=== PATIENT | female | born 1985 | race Caucasian/White ===

== ENCOUNTER 2024-05-23 13:11 | Emergency (ER) | payer OTHER ==
[2024-05-23 13:45] LABS: Specific Gravity < 1.005 (1.005-1.030); Sqamous Epithelial <5 /HPF (None Seen); Urine Bacteria None Seen /HPF (<20); Urine Bilirubin NEGATIVE (Negative); Urine Blood Negative (Negative); Urine Clarity Turbid (Clear); Urine Color Colorless (Yellow); Urine Culture Reflex Order NOT NEEDED; Urine Glucose NEGATIVE (Negative); Urine Ketones NEGATIVE (Negative); Urine Microscopic Reflex YN ORDER UMIC; Urine Nitrite NEGATIVE (Negative); Urine Protein NEGATIVE (Negative); Urine RBC <5 /HPF (None Seen); Urine Urobilinogen Normal (Normal); Urine WBC <5 /HPF (<5)
--- NOTE | 2024-05-23 14:46 | ER ---
Nurse's Notes [facility] Name: Mandy Beckford Age: 39 yrs Sex: Female : 1985 Arrival Date: 05/23/2024 Time: 13:11 Bed 16 Private MD: Diagnosis: Other ovarian cysts;Leiomyoma of uterus, unspecified Presentation: 05/23 13:22 Chief complaint: Patient states: left lower pelvic pain x1yr, worse last night. reports [facility] history of fibroids and cysts. Coronavirus screen: At this time, the client does not indicate any symptoms associated with coronavirus-19. Ebola Screen: No symptoms or risks identified at this time. Initial Sepsis Screen: Does the patient meet any 2 criteria? No. Patient's initial sepsis screen is negative. Does the patient have a suspected source of infection? No. Patient's initial sepsis screen is negative. Risk Assessment: Do you want to hurt yourself or someone else? Patient reports no desire to harm self or others. Onset of symptoms was May 23, 2024. 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 - Infectious Disease History:: Denies. - Social history:: Smoking status: Patient reports the use of cigarette tobacco products, smokes one-half pack cigarettes per day. Screenin:24 [facility] ED Fall Risk Assessment (Adult) History of falling in the last 3 months, me1 including since admission No falls in past 3 months (0 pts) Confusion or Disorientation No (0 pts) Intoxicated or Sedated No (0 pts) Impaired Gait No (0 pts) Mobility Assist Device Used No (0 pt) Altered Elimination No (0 pt) Score/Fall Risk Level 0 - 2 = Low Risk Maintained a safe environment, Provided non-skid footwear, Hourly rounding (assess needs \T\ fall precautionary measures) done. Abuse screen: Denies threats or abuse. Nutritional screening: No deficits noted. Tuberculosis screening: No symptoms or risk factors identified. Assessment: 13:24 General: Appears in no apparent distress. well developed, well nourished, Behavior is me1 calm, cooperative, appropriate for age, Reports Left lower pelvic pain x 1 year that got worse last night. Pain: Complains of pain in pelvis Pain does not radiate. Pain Pain began gradually, years ago. Is chronic. Neuro: Level of Consciousness is awake, alert, obeys commands, Oriented to person, place, time, situation, Appropriate for age. Cardiovascular: Patient's skin is warm and dry. Respiratory: Airway is patent Respiratory effort is even, unlabored, Respiratory pattern is regular, symmetrical. GI: No signs and/or symptoms were reported involving the gastrointestinal system. : Reports pain in left left lower pelvis. EENT: No signs and/or symptoms were reported regarding the EENT system. Derm: Skin is intact, is healthy with good turgor, Skin is pink, warm \T\ dry. Musculoskeletal: No signs and/or symptoms reported regarding the musculoskeletal system. 15:01 Reassessment: No changes from previously documented assessment. Patient and/or family mb9 updated on plan of care and expected duration. Pain level reassessed. Patient is alert, oriented x 3, equal unlabored respirations, skin warm/dry/pink. Vital Signs: 13:22 BP 139 / 92; Pulse 98; Resp 17 S; Temp 97.9(O); Pulse Ox 95% on R/A; Weight 86.18 kg; kc6 Height 5 ft. 8 in. (R); Pain 8/10; 15:01 BP 132 / 76; Pulse 78; Resp 18; Pulse Ox 100% on R/A; mb9 13:22 Body Mass Index 28.89 (86.18 kg, 172.72 cm) [facility] 13:22 Pain Scale: Adult [facility] ED Course: 13:13 Patient arrived in ED. mg5 13:14 Francine Salinas FNP-C is [facility]. kb 13:14 Yamil Bradford DO is Attending Physician. kb 13:24 Triage completed. 6 13:24 Cleo Molina, LIBRADO is Primary Nurse. me1 13:24 Arm band placed on. 6 13:24 Patient has correct armband on for positive identification. Bed in low position. Call me1 light in reach. Side rails up X2. Provided Education on: POC. Verbalized understanding. . Client placed on continuous cardiac and pulse oximetry monitoring. NIBP monitoring applied. Pulse ox on. NIBP on. 13:24 No provider procedures requiring assistance completed. me1 13:31 Test, Urine Sent. me1 13:31 Urinalysis w/ reflexes Sent. me1 13:31 Urine collected: clean catch specimen, clear. me1 13:48 Trice Beth, RN is Primary Nurse. mb9 14:29 Transvaginal Study (Probe) In Process Unspecified. EDMS 15:01 Patient did not have IV access during this emergency room visit. mb9 Administered Medications: 15:01 Not Given (Patient Refused): [id number] mg IM once mb9 Medication: 13:24 VIS not applicable for this client. me1 Outcome: 14:46 Discharge ordered by . kb 15:01 Discharged to home ambulatory, mb9 15:01 Condition: stable 15:01 Discharge instructions given to patient, Instructed on discharge instructions, follow up and referral plans. Demonstrated understanding of instructions, follow-up care, medications, Prescriptions given X 1, 15:02 Patient left the ED. mb9 Signatures: Dispatcher [employer] EDSC Francine Salinas, FACE BOSS-C FACE BOSS-Karly Neal RN RN Trice Champion, RN RN [email or web address] Cleo Molina RN RN me1 Mai Lima mg5
--- NOTE | 2024-05-23 14:47 | EDPHYS ---
Physician Documentation [facility] Name: Mandy Beckford Age: 39 yrs Sex: Female : 1985 Arrival Date: 05/23/2024 Time: 13:11 Bed 16 Private MD: ED Physician Yamil Bradford HPI: 05/23 14:08 This 39 yrs old Female presents to ER via Ambulatory with complaints of Pain. kb 14:08 Pt is a 39 year old female who presents for left pelvic pain that started one year ago. kb Reports pain is worse with menstrual cycles and having BM. States she was seen upon onset of symptoms and told she has fibroids and a cyst. Has not followed up with MANAGEMENT PROFESSIONAL due to lack of insurance. States the pain got worse yesterday . 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 - Infectious Disease History:: Denies. - Social history:: Smoking status: Patient reports the use of cigarette tobacco products, smokes one-half pack cigarettes per day. ROS: 14:08 Constitutional: As per HPI kb Exam: 14:08 Constitutional: This is a well developed, well nourished patient who is awake, alert, kb and in no acute distress. Head/Face: Normocephalic, atraumatic. ENT: Moist Mucous membranes Cardiovascular: Regular rate Respiratory: Respirations even and unlabored. No increased work of breathing. Talking in full sentences Abdomen/GI: Soft, non-tender. No distention Skin: Warm, dry with normal turgor. Normal color. MS/ Extremity: Pulses equal, no cyanosis. Neurovascular intact. Full, normal range of motion. Neuro: Awake and alert, GCS 15, oriented to person, place, time, and situation. Moves all extremities. Normal gait. Vital Signs: 13:22 BP 139 / 92; Pulse 98; Resp 17 S; Temp 97.9(O); Pulse Ox 95% on R/A; Weight 86.18 kg; kc6 Height 5 ft. 8 in. (R); Pain 8/10; 15:01 BP 132 / 76; Pulse 78; Resp 18; Pulse Ox 100% on R/A; mb9 13:22 Body Mass Index 28.89 (86.18 kg, 172.72 cm) kc6 13:22 Pain Scale: Adult kc6 MDM: 13:14 Patient medically screened. kb 14:08 Data reviewed: vital signs, nurses notes. kb 14:11 Differential diagnosis: ovarian cyst, fibroids, torsion. Historians other than the kb Patient: Parent: mother. 14:45 Counseling: I had a detailed discussion with the patient and/or guardian regarding the kb historical points, exam findings, and any diagnostic results supporting the discharge/admit diagnosis, lab results, radiology results, the need for outpatient follow up, an OB/Gyne specialist, to return to the emergency department if symptoms worsen or persist or if there are any questions or concerns that arise at home. 05/23 13:20 Order name: Test, Urine; Complete Time: 13:47 kb 05/23 13:20 Order name: Urinalysis w/ reflexes; Complete Time: 13:47 kb 05/23 13:20 Order name: US Transvaginal Study (Probe) kb Administered Medications: 15:01 Not Given (Patient Refused): mg IM once mb9 Disposition: 18:47 I was immediately available on-site in the Emergency Department for consultation in the nh3 care of the patient. Disposition Summary: 05/23/24 14:46 Discharge Ordered Notes: Location: Home kb Condition: Stable kb Diagnosis - Other ovarian cysts kb - Leiomyoma of uterus, unspecified kb Followup: kb - With: Emergency Department - When: As needed - Reason: Worsening of condition Followup: kb - With: Private Physician - When: 2 - 3 days - Reason: Recheck today's complaints, Continuance of care, Re-evaluation by your physician Discharge Instructions: - Discharge Summary Sheet kb - Uterine Fibroids kb - Ovarian Cyst, [id number] kb Forms: - Work release form kb - Medication Reconciliation Form kb - Antibiotic Education kb - Prescription Opioid Use kb - Patient Portal Instructions kb - Leadership Thank You Letter kb Prescriptions: - Diclofenac Sodium 75 mg Oral tablet, delayed release (enteric coated) - take 1 tablet ORAL route 2 times per day As needed; 30 tablet; Refills: 0, kb Product Selection Permitted Signatures: Dispatcher [employer] Francine Hancock FNP-C FNP-Ckb Yamil Bradford DO DO ms3 Karly Twonsend, RN RN kc6 Ignacia, Trice Nava RN mb9
[2024-05-23] MEDS ORDERED: KETOROLAC 30 MG/ML INJ ONE (14:53)
[2024-05-23 15:12] VITALS: BP 132/76; O2SAT 100
[2024-05-23 15:13] VITALS: TEMP 97.9
--- NOTE | 2024-05-23 18:19 | RAD REPORT ---
EXAM DESCRIPTION: US - Transvaginal Study Probe - 05/23/2024 2:27 pm CLINICAL HISTORY: Pelvic pain COMPARISON: none FINDINGS: The uterus measures 7 x 4 by to fibroids. The largest 1.9 centimeters. Endometrial stripe 9 millimeters. Cm. Right ovary normal size and echotexture 5.7 centimeter complex cystic mass left ovary. It contains a septation. Blood flow is present. The right and left adnexa unremarkable No significant free fluid is seen. Due to technical issues the exam could not be dictated until now. A preliminary report was given to [facility] IMPRESSION: Uterine fibroids 5.7 centimeter complex cystic mass left ovary most likely benign ovarian cyst. As an ovarian cyst maya noma can have a similar appearance it is recommended that the patient have a followup ultrasound in a couple of months to assess stability/resolution
== END 2024-05-23 15:02 | disposition home or self-care (01) ==
LOC: ER 13:11
DX: N83.299 Other ovarian cyst, unspecified side (principal); D25.9 Leiomyoma of uterus, unspecified; F17.210 Nicotine dependence, cigarettes, uncomplicated
CPT/HCPCS: 76830; 81001; 81025; 99283